=== PATIENT | female | born 2000 | race Caucasian/White ===

== ENCOUNTER 2021-07-12 11:47 | Emergency (ER) | payer SELFPAY ==
[2021-07-12 11:57] VITALS: BP 78/47; PULSE 67; RESP 16; TEMP 36.4; O2SAT 100
[2021-07-12 12:14] VITALS: BP 92/56; PULSE 60; RESP 17; O2SAT 98
--- NOTE | 2021-07-12 12:14 | XRR_ITS ---
PROCEDURE INFORMATION: Exam: XR Chest Exam date and time: 07/12/2021 12:14 PM Age: 21 years old Clinical indication: Angina; Patient HX: SOB, chest pain today TECHNIQUE: Imaging protocol: XR of the chest. Views: 1 view. COMPARISON: CT Abdomen/Pelvis Renal [id number] 12/18/2018 11:20 PM FINDINGS: Lungs: Unremarkable. No consolidation. Pleural spaces: Unremarkable. No pleural effusion. No pneumothorax. Heart/Mediastinum: Unremarkable. No cardiomegaly. Bones/joints: Unremarkable. XR/XR chest 1V portable [id number] IMPRESSION: No acute findings.
--- NOTE | 2021-07-12 12:15 | ECG_ITS ---
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 Measurements Intervals [place] Rate: 66 P: 34 GA: 113 QRS: 53 QRSD: 89 T: 60 QT: 419 QTc: 441 Interpretive Statements SINUS RHYTHM WITH SINUS ARRHYTHMIA WITH SHORT GA INTERVAL INTERPRETATION BASED ON A DEFAULT AGE OF 40 YEARS No previous ECG available for comparison Electronically Signed On 07-13-2021 23:15:14 CDT by Addi Murphy M.D. [id number]
--- NOTE | 2021-07-12 12:17 | ED_ITS ---
HPI - Chest Pain General: Chief Complaint: Chest Pain Stated Complaint: MID-UPPER ABD PAIN Time Seen by Provider: 07/12/21 12:07 History of Present Illness: HPI narrative: 21-year-old female presents emergency room via private vehicle complaining of mid upper abdominal pain. She states she has had this epigastric pain radiating to her chest for the last couple of days ago which is worsening today she became dizzy and nauseated felt like she would pass out. On arrival here she is moderately hypotensive. No major medical problems she is not on any prescription medication she takes a few [id number] nutritional tablets. Patient does not smoke denies use drugs or alcohol MD complaint: chest pain and chest heaviness Onset (ago): day(s) Timing of current episode: episodic Pain location: substernal Severity: moderate Quality: aching Relieving factors: nothing Exacerbating factors: nothing Associated symptoms: Reports abdominal pain, dyspnea and nausea; Deny diaphoresis, fever(s), leg edema, sense of impending doom, syncope or vomiting Treatment prior to arrival: none Review of Systems Const: Denies: fever(s) or diaphoresis ENMT: Denies: throat pain, ear or mastoid pain, nasal discharge or nasal congestion Card: Denies: syncope Resp: Reports: dyspnea GI: Reports: abdominal pain and nausea; Denies: vomiting : Denies: flank pain, difficulty voiding, dysuria, urinary frequency or urinary urgency Skin/Breast: Denies: rash or pruritus Physical Exam Const: COMMON NORMALS: no acute distress GENERAL APPEARANCE: cooperative and comfortable ORIENTATION/CONSCIOUSNESS: Yes awake, Yes oriented to person, Yes oriented to place and Yes oriented to time HENMT: COMMON NORMALS: normocephalic, atraumatic, hearing grossly normal bilaterally and external ears normal HEAD & SCALP: normocephalic and atraumatic EXTERNAL EAR: Yes external ears normal Neck/C-Spine: COMMON NORMALS: no JVD Resp: COMMON NORMALS: normal respiratory effort, No retractions, No use of accessory muscles and clear to auscultation bilaterally AUSCULTATION: clear to auscultation bilaterally Cardio: COMMON NORMALS: no JVD, regular rate, regular rhythm and No murmurs present (Cardio) RATE: regular rate RHYTHM: regular rhythm GI: COMMON NORMALS: Soft to palpation and No hepatosplenomegaly present AUSCULTATION: Yes normoactive bowel sounds PALPATION: Yes Soft to palpation, No Tenderness to palpation present (GI), No Guarding due to palpation present (GI) and Yes No hepatosplenomegaly present Extremity: COMMON NORMALS: normal to inspection, capillary refill normal, no clubbing, cyanosis or edema, no calf tenderness and no pedal edema Neuro: SENSORIUM/ORIENTATION: Yes oriented to person, Yes oriented to place and Yes oriented to time Skin: COMMON NORMALS: no rashes or lesions noted GENERAL SKIN EXAM: no rashes or lesions noted Course Vital Signs: Vital signs: Vital Signs Temperature 97.5 F L 07/12/21 11:57 Pulse Rate 88 07/12/21 15:35 Respiratory Rate 15 07/12/21 15:35 Blood Pressure 107/69 07/12/21 15:35 Pulse Oximetry 99 07/12/21 15:35 MDM - Chest Pain MDM Narrative: Medical decision making narrative: Labs imaging and EKG reviewed on the chart. Troponins are negative. Her blood pressure is improved after fluids. Wearing [place] discharge her home start her on Protonix Zofran to use as needed follow-up with your primary care doctor within the next 2 to 3 days return for further problems. Lab Data: Labs: Lab Results 07/12/21 07/12/21 07/12/21 12:12 12:12 12:12 WBC 8.8 10^3/uL 10^3/ uL (4.5-13.0) RBC 4.59 10^6/uL 10^6 /uL (4.1-5.3) Hgb 13.3 g/dL g/dL (11.5-15.3) Hct 39.1 % % (37.0-47.0) MCV 85.2 fl fl (81-99) MCH 29.0 pg pg (28.0-34.0) MCHC 34.0 g/dL g/dL (30.0-36.0) RDW 11.6 % L % (12.1-15.1) Plt Count 292 10^3/cmm 10^3 /cmm (130-400) MPV 10.7 fL H fL (7.4-10.4) Neut % (Auto) 63.6 % % Lymph % (Auto) 26.7 % % Brooks % (Auto) 5.9 % % Eos % (Auto) 2.9 % % Baso % (Auto) 0.7 % % Neut # (Auto) 5.58 10^3/uL 10^3 /uL (1.8-8.0) Lymph # (Auto) 2.3 10^3/uL 10^3/ uL (1.5-6.5) Brooks # (Auto) 0.5 10^3/uL 10^3/ uL (0.2-0.9) Eos # (Auto) 0.3 10^3/uL 10^3/ uL (0.0-0.8) Baso # (Auto) 0.1 10^3/uL 10^3/ uL (0.0-0.1) Nucleated RBC % (a uto) 0 % % Nucleated RBCs # 0.0 /100WBC /100W BC Specimen Type Sample Site ABG pH ABG pCO2 ABG pO2 ABG HCO3 ABG O2 Saturation ABG Base Excess Dustin Test A-a O2 Gradient Hematocrit Hgb O2 Saturation Carboxyhemoglobin Methemoglobin Total Hemoglobin Ionized Calcium O2 Delivery Device FiO2 Petroleum Refining Equipment Operator ID Sodium 141 mmol/L mmol/L (136-145) Potassium 3.9 mmol/L mmol/L (3.5-5.1) Chloride 104 mmol/L mmol/L (98-107) Carbon Dioxide 26 mmol/L mmol/L (22-29) Anion Gap 14.9 (5-19) BUN 8 mg/dL mg/dL (6-20) Creatinine 0.7 mg/dL mg/dL (0.5-0.9) GFR Calculation 106.7 mL/min mL/m in (90-130) Glucose 98 mg/dL mg/dL (65-115) Calculated Osmolal ity 290 mOsm/kg mOsm/ kg (285-295) Calcium 9.5 mg/dL mg/dL (8.5-10.5) Total Bilirubin 0.3 mg/dL mg/dL (0.15-1.2) AST 17 U/L U/L (0-32) ALT 15 U/L U/L (0-33) Alkaline Phosphata se 51 IU/L IU/L (35-105) Troponin T Baselin e 6 ng/L ng/L (0-10) Troponin T 120 Min [place] Troponin T Total Protein 6.5 g/dL L g/dL (6.6-8.7) Albumin 4.3 g/dL g/dL (3.5-5.2) Globulin 2.2 g/dL g/dL (1.3-4.6) HCG, Qual Urine Color Urine Appearance Urine pH Ur Specific Gravit y Urine Protein Urine Glucose (UA) Urine Ketones Urine Blood Urine Nitrate Urine Bilirubin Urine Urobilinogen Ur Leukocyte Linda ase 07/12/21 07/12/21 07/12/21 12:12 12:28 13:23 WBC RBC Hgb Hct MCV MCH MCHC RDW Plt Count MPV Neut % (Auto) Lymph % (Auto) Brooks % (Auto) Eos % (Auto) Baso % (Auto) Neut # (Auto) Lymph # (Auto) Brooks # (Auto) Eos # (Auto) Baso # (Auto) Nucleated RBC % (a uto) Nucleated RBCs # Specimen Type Arterial Sample Site Radial, right ABG pH 7.44 (7.35-7.45) ABG pCO2 37.6 mmHg mmHg (35-45) ABG pO2 83.8 mmHg mmHg (80.0-100.0) ABG HCO3 25.3 mmol/L mmol/ L (22-26) ABG O2 Saturation 97.6 ABG Base Excess 1.2 mmol/L mmol/L (-2.0-2.0) Dustin Test Pos A-a O2 Gradient 2.5 mmHg L mmHg (5-10) Hematocrit 41.0 % % (37-47) Hgb O2 Saturation 96.1 % % (95-100) Carboxyhemoglobin 0.8 %THgb %THgb (0.4-20.1) Methemoglobin 0.7 % % (0.4-1.5) Total Hemoglobin 13.4 g/dL g/dL (12-16) Ionized Calcium 1.2 mmol/L mmol/L (1.1-1.4) O2 Delivery Device Room air FiO2 21.0 % % Petroleum Refining Equipment Operator ID Amh Sodium 138.0 mmol/L mmol /L (131-143) Potassium 3.7 mmol/L mmol/L (3.5-5.0) Chloride Carbon Dioxide Anion Gap BUN Creatinine GFR Calculation Glucose 112.0 mg/dL mg/dL (70-115) Calculated Osmolal ity Calcium Total Bilirubin AST ALT Alkaline Phosphata se Troponin T Baselin e Troponin T [address] [place] Troponin T Total Protein Albumin Globulin HCG, Qual Negative (Negative) Urine Color Yellow (Yellow) Urine Appearance Clear (CLEAR) Urine pH 7 (5-7) Ur Specific Gravit y 1.015 (1.005-1.030) Urine Protein Neg (Negative) Urine Glucose (UA) Norm (Normal) Urine Ketones 1+ H (Negative) Urine Blood Neg (Negative) Urine Nitrate Negative (Negative) Urine Bilirubin Neg (Negative) Urine Urobilinogen 1 mg/dL H mg/dL (Negative) Ur Leukocyte Linda ase Negative (Negative) 07/12/21 14:20 WBC RBC Hgb Hct MCV MCH MCHC RDW Plt Count MPV Neut % (Auto) Lymph % (Auto) Brooks % (Auto) Eos % (Auto) Baso % (Auto) Neut # (Auto) Lymph # (Auto) Brooks # (Auto) Eos # (Auto) Baso # (Auto) Nucleated RBC % (a uto) Nucleated RBCs # Specimen Type Sample Site ABG pH ABG pCO2 ABG pO2 ABG HCO3 ABG O2 Saturation ABG Base Excess Dustin Test A-a O2 Gradient Hematocrit Hgb O2 Saturation Carboxyhemoglobin Methemoglobin Total Hemoglobin Ionized Calcium O2 Delivery Device FiO2 Petroleum Refining Equipment Operator ID Sodium Potassium Chloride Carbon Dioxide Anion Gap BUN Creatinine GFR Calculation Glucose Calculated Osmolal ity Calcium Total Bilirubin AST ALT Alkaline Phosphata se Troponin T Baselin e Troponin T [address] [place] 6.00 ng/L ng/L (0-10) [place] Troponin T 0 ABS# ABS# (0-10) Total Protein Albumin Globulin HCG, Qual Urine Color Urine Appearance Urine pH Ur Specific Gravit y Urine Protein Urine Glucose (UA) Urine Ketones Urine Blood Urine Nitrate Urine Bilirubin Urine Urobilinogen Ur Leukocyte Linda ase Discharge Plan Discharge Patient Disposition: Home Clinical Impression: Chest pain due to gastrointestinal reflux disease Condition: Stable Prescriptions: New Protonix 40 mg tablet,delayed release (DR/EC) 40 mg PO DAILY Qty: 30 RF: 0 Zofran 4 mg tablet 4 mg PO Q6H PRN (Reason: nausea and vomiting) Qty: 15 RF: 0 No Action biotin 1 mg Capsule 1 mg PO DAILY RF: 0 Discharge Orders: Discharge ED (Routine); Ordered 07/12/21 Ordered By: Marco Antonio Antony Discharge Diet: As Directed Discharge Activity: Increase activity as tolerated Patient Instructions: Opioid Safety Coding Level of Care Code ED Animal Nutritionist for Chg Fwd Exam Comprehensive
[2021-07-12 12:24] LABS: Basophils # 0.1 10^3/uL (0.0-0.1); Basophils % 0.7 %; Eosinophils # 0.3 10^3/uL (0.0-0.8); Eosinophils % 2.9 %; Hematocrit 39.1 % (37.0-47.0); Hemoglobin 13.3 g/dL (11.5-15.3); Lymphocytes # 2.3 10^3/uL (1.5-6.5); Lymphocytes % 26.7 %; Mean Corpuscular Volume 85.2 fl (81-99); Mean Platelet Volume 10.7 fL (7.4-10.4); Monocytes # 0.5 10^3/uL (0.2-0.9); Monocytes % 5.9 %; Neutrophils # 5.58 10^3/uL (1.8-8.0); Neutrophils % 63.6 %; Nucleated Red Blood Cells % 0 %; Platelet Count 292 10^3/cmm (130-400); Red Blood Count 4.59 10^6/uL (4.1-5.3); Red Cell Distribution Width 11.6 % (12.1-15.1); White Blood Count 8.8 10^3/uL (4.5-13.0)
[2021-07-12 12:25] VITALS: BP 92/56; PULSE 67; RESP 20; O2SAT 96
[2021-07-12 12:39] LABS: ABG PCO2 37.6 mmHg (35-45); ABG PH Result 7.44 (7.35-7.45); Alveolar-Arterial Oxygen Gradi 2.5 mmHg (5-10); Base Excess ABG 1.2 mmol/L (-2.0-2.0); Blood Gas Allen Test Pos; Blood Gas Operator Identificat AMH; Blood Gas Sample Site Radial, right; Blood Gas Sample Type Arterial; Carboxyhemoglobin 0.8 %THgb (0.4-20.1); HCO3 ABG 25.3 mmol/L (22-26); HGB O2 Sat 96.1 % (95-100); Ionized Calcium Level - ABG 1.2 mmol/L (1.1-1.4); Methemoglobin 0.7 % (0.4-1.5); Oxygen Device ROOM AIR; Oxygen Saturation ABG 97.6; PO2 ABG 83.8 mmHg (80.0-100.0); Potassium Level - ABG 3.7 mmol/L (3.5-5.0); Total Hemoglobin 13.4 g/dL (12-16)
[2021-07-12 12:47] LABS: Troponin(5th) Baseline 6 ng/L (0-10)
[2021-07-12 12:49] LABS: Alanine Aminotransferase 15 U/L (0-33); Albumin Level 4.3 g/dL (3.5-5.2); Alkaline Phosphatase 51 IU/L (35-105); Anion Gap 14.9 (5-19); Aspartate Amino Transferase 17 U/L (0-32); Blood Urea Nitrogen 8 mg/dL (6-20); Calcium 9.5 mg/dL (8.5-10.5); Carbon Dioxide 26 mmol/L (22-29); Chloride 104 mmol/L (98-107); Globulin 2.2 g/dL (1.3-4.6); Glomerular Filtration Rate 106.7 mL/min (90-130); Glucose 98 mg/dL (65-115); Osmolality Calculated 290 mOsm/kg (285-295); Potassium 3.9 mmol/L (3.5-5.1); Sodium 141 mmol/L (136-145); Total Bilirubin 0.3 mg/dL (0.15-1.2); Total Protein 6.5 g/dL (6.6-8.7)
[2021-07-12] MEDS: sodium chloride 0.9% 1,000 ML 999 ML IV (12:50)
[2021-07-12 13:27] LABS: HCG, Serum Qual Negative (Negative)
[2021-07-12 13:49] LABS: Add Urine Microscopic? NO; Charge for UA Resulting for Rev
[2021-07-12 13:53] LABS: Glucose Urine UA Norm (Normal); Protein Urine Neg (Negative); Specific Gravity, Urine 1.015 (1.005-1.030); Urine Appearance Clear (CLEAR); Urine Color Yellow (Yellow); pH Urine 7 (5-7)
[2021-07-12 13:54] LABS: Bilirubin Urine Neg (Negative); Blood Urine Neg (Negative); Ketones Urine 1+ (Negative); Leukocyte Esterase Urine Negative (Negative); Nitrate Urine Negative (Negative); Urobilinogen Urine 1 mg/dL (Negative)
--- NOTE | 2021-07-12 14:15 | ECG_ITS ---
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 Measurements Intervals [place] Rate: 64 P: 55 DC: 123 QRS: 55 QRSD: 88 T: 60 QT: 424 QTc: 439 Interpretive Statements SINUS RHYTHM Short DC interval Compared to ECG 07/12/2021 12:05:48 Sinus arrhythmia no longer present Short DC interval no longer present Electronically Signed On 07-13-2021 23:44:21 CDT by Addi Murphy M.D. [id number]
[2021-07-12 14:47] LABS: Troponin 5 2HR Delta 0 ABS# (0-10)
[2021-07-12 15:35] VITALS: BP 107/69; PULSE 88; RESP 15; O2SAT 99
== END 2021-07-12 15:36 | disposition home or self-care (01) ==
PROVIDERS: Emergency Provider Family Medicine
DX: K21.9 Gastro-esophageal reflux disease without esophagitis (principal)
CPT/HCPCS: 36600; 71045; 80051; 80053; 81003; 82330; 82805; 84484; 84703; 85025; 93005; 96360; 99283; J7030

== ENCOUNTER 2023-11-29 11:31 | Outpatient (CLI) | payer OTHER, SELFPAY ==
[2023-11-29 12:42] LABS: Basophils # 0.1 10^3/uL (0.0-0.1); Eosinophils # 0.2 10^3/uL (0.0-0.8); Eosinophils % 4.6 %; Hematocrit 38.8 % (36-47); Lymphocytes # 1.7 10^3/uL (0.8-4.8); Mean Corpuscular HGB Conc 33.8 g/dL (30-55); Mean Corpuscular Hemoglobin 29.5 pg (27-33); Mean Corpuscular Volume 87.4 fl (85-98); Mean Platelet Volume 11.9 fL (7.4-10.4); Monocytes # 0.3 10^3/uL (0.2-0.9); Neutrophils # 2.74 10^3/uL (1.8-7.7); Neutrophils % 55.2 %; Nucleated Red Blood Cells % 0 %; Platelet Count 207 10^3/cmm (157-399); Red Blood Count 4.44 10^6/uL (3.85-5.65); Red Cell Distribution Width 12.3 % (12.1-15.1); White Blood Count 4.97 10^3/uL (3.29-11.43)
[2023-11-29 13:02] LABS: Bilirubin Urine Neg (Negative); Blood Urine Neg (Negative); Glucose Urine UA Norm (Normal); Ketones Urine Negative (Negative); Leukocyte Esterase Urine Negative (Negative); Nitrate Urine Negative (Negative); Protein Urine Neg (Negative); Sulfosalicylic Acid Urine Negative (Negative); Urine Appearance Clear (CLEAR); Urine Color Yellow (Yellow); Urobilinogen Urine Neg (Negative); pH Urine 8 (5-7)
[2023-11-29 13:03] LABS: WBC Urine RARE /hpf (0-5)
[2023-11-29 13:04] LABS: Add Urine Culture? No; Bacteria Urine TRACE /hpf; Calcium Oxalate Crystals Urine RARE /hpf; Mucus Urine TRACE /hpf; Squamous Epithelial Cell Urine 0-4 /hpf (0-5); Transitional Epi Cells Urine RARE /hpf
[2023-11-29 13:06] LABS: Estmated Average Glucose 88; Hemoglobin A1C 4.7 % (4.0-6.0)
[2023-11-29 13:30] LABS: 25 Hydroxy Vitamin D 27 ng/mL (30-100); Alanine Aminotransferase 19 U/L (0-33); Albumin Level 3.9 g/dL (3.5-5.2); Alkaline Phosphatase 49 U/L (35-105); Anion Gap 12.1 (5-19); Aspartate Amino Transferase 16 U/L (0-32); Blood Urea Nitrogen 6 mg/dL (6-20); Calcium 9.1 mg/dL (8.5-10.5); Carbon Dioxide 26 mmol/L (22-29); Chloride 105 mmol/L (98-107); Chol HDL Ratio 2.68 mg/dL (0.0-4.40); Cholesterol 118 mg/dL (0-200); Globulin 2.6 g/dL (1.3-4.6); Glucose 68 mg/dL (65-115); HDL Cholesterol 44 mg/dL (60-100); Iron 82 ug/dL (37-145); LDL Cholesterol Calculated 64 mg/dL (50-129); LDL HDL Ratio 1.45 RATIO (0.00-3.22); Osmolality Calculated 284 mOsm/kg (285-295); Percent Saturation 28.6 % (20-50); Potassium 4.1 mmol/L (3.5-5.1); Sodium 139 mmol/L (136-145); Total Bilirubin 0.3 mg/dL (0.15-1.2); Total Iron Binding Capacity 286 mcg/dl; Total Protein 6.5 g/dL (6.6-8.7); Triglycerides 50 mg/dL (0-150); Unsaturated Iron Binding 204 ug/dL (112-347); Vitamin B12 713 pg/mL (232-1245)
[2023-11-29 13:32] LABS: Folate Level 10.7 ng/mL (4.8-37.3)
[2023-11-29 14:32] LABS: Free T4 Free Thyroxine 1.25 ng/dL (0.82-1.77); T3 Free 2.7 PG/ML (2.0-4.4)
[2023-12-02 10:49] LABS: Zinc Level, Serum or Plasma 50 mcg/dL (60-130)
[2023-12-03 15:44] LABS: Vitamin A (Retinol) 55 mcg/dL (38-98)
[2023-12-03 23:58] LABS: Vitamin K 70 pg/mL (130-1500)
[2023-12-04 13:34] LABS: Vitamin B1 (Thiamine),Blood 100 nmol/L (78-185)
[2023-12-04 16:34] LABS: Alpha-Tocopherol 6.7 mg/L (5.7-19.9); Beta-Gamma-Tocopherol <1.0 mg/L (<4.4)
[2023-12-05 10:44] LABS: Copper Level 157 mcg/dL (70-175)
[2023-12-05 15:36] LABS: Selenium 117 mcg/L (63-160)
== END 2023-11-29 11:32 | disposition home or self-care (01) ==
PROVIDERS: PCP Nurse Practitioner Family; Visit Provider Nurse Practitioner Family
DX: Z94.84 Stem cells transplant status (principal); R20.0 Anesthesia of skin; R20.2 Paresthesia of skin; Z13.6 Encounter for screening for cardiovascular disorders; Z79.899 Other long term (current) drug therapy; F41.9 Anxiety disorder, unspecified; F32.9 Major depressive disorder, single episode, unspecified; K21.9 Gastro-esophageal reflux disease without esophagitis
CPT/HCPCS: 36415; 80053; 80061; 81003; 82306; 82525; 82607; 82746; 83036; 83550; 84255; 84425; 84439; 84443; 84446; 84481; 84590; 84597; 84630; 85025

== ENCOUNTER → 2025-02-25 10:50 | Outpatient (BNVA) | payer BC, SELFPAY | PROVIDERS: PCP Nurse Practitioner Family; Visit Provider Nurse Practitioner Family | DX: T78.40XD Allergy, unspecified, subsequent encounter (principal); X58.XXXD Exposure to other specified factors, subsequent encounter; T14.8XXA Other injury of unspecified body region, initial encounter; W57.XXXA Bitten or stung by nonvenomous insect and other nonvenomous arthropods, initial encounter; Z91.018 Allergy to other foods | CPT/HCPCS: 82785; 86001; 86003; 86008 ==